=== PATIENT | male | born 1955 | race Caucasian/White ===

== ENCOUNTER 2022-09-28 09:55 | Outpatient (REF) | payer MEDICARE, MEDICAID, SELFPAY ==
--- NOTE | ~2022-09-28 | XR_ITS ---
EXAMINATION: X-RAY RIGHT KNEE X-RAY STANDING BOTH KNEES CLINICAL INFORMATION: Pain. COMPARISON: Standing view radiograph 05/13/2015. TECHNIQUE: 2 views of the right knee. 1 standing view of both knees. FINDINGS: Total left knee arthroplasty without evidence of fracture or malfunctioning in this limited single view. No acute fractures or subluxation of the right knee. Severe joint space narrowing and subcortical sclerosis of the medial compartment of the right knee, progressed since 2014. Increased chondrocalcinosis in the lateral compartment of the right knee. Trace amount of joint fluid in the right knee. Scattered vascular calcifications. XR/XR knee standing BI IMPRESSION: 1. No acute fractures or subluxation. 2. Severe degenerative osteoarthritis of the medial compartment of the right knee, progressed since 2014. 3. Increased chondrocalcinosis in the lateral compartment of the right knee compared to 2015.
--- NOTE | ~2022-09-28 | XR_ITS ---
EXAMINATION: X-RAY RIGHT KNEE X-RAY STANDING BOTH KNEES CLINICAL INFORMATION: Pain. COMPARISON: Standing view radiograph 05/13/2015. TECHNIQUE: 2 views of the right knee. 1 standing view of both knees. FINDINGS: Total left knee arthroplasty without evidence of fracture or malfunctioning in this limited single view. No acute fractures or subluxation of the right knee. Severe joint space narrowing and subcortical sclerosis of the medial compartment of the right knee, progressed since 2014. Increased chondrocalcinosis in the lateral compartment of the right knee. Trace amount of joint fluid in the right knee. Scattered vascular calcifications. XR/XR knee RT 2V IMPRESSION: 1. No acute fractures or subluxation. 2. Severe degenerative osteoarthritis of the medial compartment of the right knee, progressed since 2014. 3. Increased chondrocalcinosis in the lateral compartment of the right knee compared to 2015.
== END 2022-09-28 09:56 | disposition home or self-care (01) ==
LOC: HO.HOSX 09:55
PROVIDERS: Visit Provider Physician Assistant
DX: M17.11 Unilateral primary osteoarthritis, right knee (principal)
CPT/HCPCS: 73560; 73565; 99202

== ENCOUNTER → 2022-10-17 09:00 | Outpatient (BNVA) | payer MEDICARE, MEDICAID, SELFPAY | PROVIDERS: PCP Nurse Practitioner Primary Care; Visit Provider Orthopaedic Surgery | DX: M17.11 Unilateral primary osteoarthritis, right knee (principal); Z96.652 Presence of left artificial knee joint | CPT/HCPCS: 99212 ==

== ENCOUNTER → 2022-11-15 09:58 | Outpatient (BNVA) | payer MEDICARE, MEDICAID, SELFPAY | PROVIDERS: PCP Nurse Practitioner Primary Care; Visit Provider Orthopaedic Surgery ==

== ENCOUNTER → 2022-12-08 13:10 | Outpatient (BNVA) | payer MEDICARE, MEDICAID, SELFPAY | PROVIDERS: PCP Physician Assistant; Visit Provider Physician Assistant | DX: Z01.818 Encounter for other preprocedural examination (principal); M17.11 Unilateral primary osteoarthritis, right knee | CPT/HCPCS: 99212 ==

== ENCOUNTER 2022-12-13 07:30 | Day surgery (SDC) | payer MEDICARE, MEDICAID, SELFPAY ==
[2022-12-05 12:17] VITALS: BP 148/72; PULSE 65; RESP 20; O2SAT 97; BMI 33.7
--- NOTE | 2022-12-05 12:38 | P.CONAN_ITS ---
Documented by User: Claritza Garza NP 12/12/22 09:20 HPI - Anesthesia Eval Consult details Narrative: 67yo M for Right Knee Replacement Total PCP cleared Cardiology cleared (mild-mod aortic stenosis. Last ECHO 2020.) Low Mg at PCP. PO supplement. Repeat value pending. Case reviewed with Dr Ashby. ? GA vs Spinal PMFSH Active Problems Active Problems: All Active Problems (Updated 12/05/22 @ 12:33 by Catrachita Thompson RN) Osteoarthritis of right knee (Acute) History of left knee replacement (Acute) Past Medical History Medical History Anxiety Aortic stenosis Arthritis Asthma Depression Hepatitis C High blood pressure Neuropathy Substance abuse in remission Family History Family history of problems with anesthesia: No Surgical History Surgical History H/O colonoscopy History of total left knee replacement Hx of left inguinal hernia repair Hx of vein stripping History of Problems with Anesthesia: No Social History Social History Are you a primary health and social care teacher to a significant other at home: No Do you presently have visiting nurse or other home services: No Tobacco use type: Cigarette Cigarettes Per Day: 20 Years Smoked: 40 Smoked in Last 30 Days: Yes Patient Interested in Nicotine Replacement: Yes (is starting on nicotrol inhaler but patch is ok during stay) Use of substances other than those prescribed or required for medical reasons: Yes Substance Use Type Other:: former heroin use-clean since 2018, current daily marijuana Substance Use Frequency: Daily Have you been hit, kicked, punched, or otherwise hurt by someone within the past year? If so, by whom?: No Are you DNR?: No Advance Directives: No (no official HCP form-mother is primary contact) Advance Directives Information Provided: Yes (brochure given) Advance Directives on File: No Recently lost weight without trying: No Eating poorly because of decreased appetite: No Nutrition Risks: No Nutritional Risk Poor oral hygiene: No (upper full denture/no lower teeth, juan not wear lower denture) Current occupational status: retired Current occupation: rt hand Narrative Narrative: No recent illness No CP/SOB within limits of pain (minimal activity) Meds Allergies Allergy/AdvReac Type Severity Reaction Status Date / Time No Known Allergies Allergy Unverified 12/08/22 13:16 [No Known Allergies*] Home Medications Medication Instructions Recorded Confirmed Last Taken Type azelastine 137 mcg (0.1 %) nasal 2 spray intranasal BID PRN Allergy 09/28/22 12/08/22 Unknown History spray aerosol Symptoms clonidine HCl 0.1 mg tablet 0.1 mg PO BEDTIME 09/28/22 12/08/22 Unknown History folic acid 1 mg tablet 1 mg PO BEDTIME 09/28/22 12/08/22 Unknown History hydrochlorothiazide 25 mg tablet 25 mg PO DAILY PRN ankle edema 09/28/22 12/08/22 Unknown History ibuprofen 600 mg tablet 600 mg PO TID PRN Pain 09/28/22 12/08/22 Unknown History lisinopril 40 mg tablet 40 mg PO BEDTIME 09/28/22 12/08/22 Unknown History magnesium oxide 400 mg (241.3 mg 800 mg PO QPM 09/28/22 12/08/22 Unknown History magnesium) tablet nicotine 10 mg inhalation 1 inh inhalation Q2H 09/28/22 12/08/22 Unknown History cartridge (Nicotrol) albuterol sulfate 90 mcg/actuation 2 puff inhalation Q4H PRN 12/02/22 12/13/22 12/12/22 History aerosol inhaler Shortness Of Breath budesonide 90 mcg/actuation breath 2 inh inhalation BID 12/02/22 12/08/22 Unknown History activated powder inhaler (Pulmicort Flexhaler) cholecalciferol (vitamin D3) 25 25 mcg PO BEDTIME 12/02/22 12/05/22 Unknown History mcg (1,000 unit) capsule (Vitamin D3) Exam Exam Date and Time: December 05, 2022 1238 Height,Weight and Vital Signs: Height 5 ft 9 in Weight 103.873 kg Last Vital Signs Pulse 65 12/05/22 12:17 Resp 20 12/05/22 12:17 BP 148/72 H 12/05/22 12:17 Pulse Ox 97 12/05/22 12:17 O2 Del Method Room Air 12/05/22 12:17 Pertinent Lab Results Pertinent Lab Results: CBC and BMP 11/2022 from outside facility WNL Mg low @ 1.4, repeat pending Lab Results 12/05/22 12/05/22 12/05/22 Range/Units 12:40 13:18 13:24 Magnesium 1.4 L* (1.6-2.6) mg/dL Nasal Screen MRSA (PCR) NEGATIVE (Negative) Nasal S. aureus Screen NEGATIVE (Negative) Nasal MRSA/S.aureus Interp SEE NOTE Urine Opiates Screen (Not Detect) Urine Fentanyl Screen (Not Detect) Ur Barbiturates Screen (Not Detect) Ur Phencyclidine Scrn (Not Detect) Ur Amphetamines Screen (Not Detect) U Benzodiazepines Scrn (Not Detect) Urine Cocaine Screen (Not Detect) U Marijuana (THC) Screen (Not Detect) Blood Type O Positive Antibody Screen NEGATIVE 12/05/22 12/08/22 Range/Units 13:40 14:24 Magnesium 1.7 (1.6-2.6) mg/dL Nasal Screen MRSA (PCR) (Negative) Nasal S. aureus Screen (Negative) Nasal MRSA/S.aureus Interp Urine Opiates Screen Not Detected (Not Detect) Urine Fentanyl Screen Not Detected (Not Detect) Ur Barbiturates Screen Not Detected (Not Detect) Ur Phencyclidine Scrn Not Detected (Not Detect) Ur Amphetamines Screen Not Detected (Not Detect) U Benzodiazepines Scrn Not Detected (Not Detect) Urine Cocaine Screen Not Detected (Not Detect) U Marijuana (THC) Screen POSITIVE H (Not Detect) Blood Type Antibody Screen Narrative Narrative: EKG 11/2022 SR @ 60 1st deg AV block ECHO 2020 1. LV size is normal 2. Mild conc LVH 3. LV systolic function nml with EF 65-70% 4. Grade 1 DD with impaired relaxation. LA pressures nml 5. AV mildly calcified 6. Mild-mod (REYES = 1.3cm2) 7. Max velocity across AV 2.94 (increased from 2.49 in 2019) 8. Trace MR Airway TM Dist: >3cm Neck ROM: Full Denture: Upper and Lower Heart: RRR +M Lungs: CTAB Assessment and Plan Assessment Anesthesia Assessment: Anesthesia Plan Discussed, Smoking Cess. Discussed and PAT Visit Final Anesthetic Review Family History of Problems with Anesthesia: No History of Problems with Anesthesia: No Documented by User: Jessica Seth MD 12/13/22 12:00 [facility] Past Medical History Medical History Anxiety Aortic stenosis Arthritis Asthma Depression Hepatitis C High blood pressure Neuropathy Substance abuse in remission Surgical History Surgical History H/O colonoscopy History of total left knee replacement Hx of left inguinal hernia repair Hx of vein stripping Social History Social History Are you a primary health and social care teacher to a significant other at home: No Do you presently have visiting nurse or other home services: No Tobacco use type: Cigarette Cigarettes Per Day: 20 Years Smoked: 40 Smoked in Last 30 Days: Yes Patient Interested in Nicotine Replacement: Yes (is starting on nicotrol inhaler but patch is ok during stay) Use of substances other than those prescribed or required for medical reasons: Yes Substance Use Type Other:: former heroin use-clean since 2018, current daily marijuana Substance Use Frequency: Daily Have you been hit, kicked, punched, or otherwise hurt by someone within the past year? If so, by whom?: No Are you DNR?: No Advance Directives: No (no official HCP form-mother is primary contact) Advance Directives Information Provided: Yes (brochure given) Advance Directives on File: No Recently lost weight without trying: No Eating poorly because of decreased appetite: No Nutrition Risks: No Nutritional Risk Poor oral hygiene: No (upper full denture/no lower teeth, juan not wear lower denture) Current occupational status: retired Current occupation: rt hand Meds Allergies Allergy/AdvReac Type Severity Reaction Status Date / Time No Known Allergies Allergy Unverified 12/08/22 13:16 [No Known Allergies*] Home Medications Medication Instructions Recorded Confirmed Last Taken Type azelastine 137 mcg (0.1 %) nasal 2 spray intranasal BID PRN Allergy 09/28/22 12/08/22 Unknown History spray aerosol Symptoms clonidine HCl 0.1 mg tablet 0.1 mg PO BEDTIME 09/28/22 12/08/22 Unknown History folic acid 1 mg tablet 1 mg PO BEDTIME 09/28/22 12/08/22 Unknown History hydrochlorothiazide 25 mg tablet 25 mg PO DAILY PRN ankle edema 09/28/22 12/08/22 Unknown History ibuprofen 600 mg tablet 600 mg PO TID PRN Pain 09/28/22 12/08/22 Unknown History lisinopril 40 mg tablet 40 mg PO BEDTIME 09/28/22 12/08/22 Unknown History magnesium oxide 400 mg (241.3 mg 800 mg PO QPM 09/28/22 12/08/22 Unknown History magnesium) tablet nicotine 10 mg inhalation 1 inh inhalation Q2H 09/28/22 12/08/22 Unknown History cartridge (Nicotrol) albuterol sulfate 90 mcg/actuation 2 puff inhalation Q4H PRN 12/02/22 12/13/22 12/12/22 History aerosol inhaler Shortness Of Breath budesonide 90 mcg/actuation breath 2 inh inhalation BID 12/02/22 12/08/22 Unkno wn History activated powder inhaler (Pulmicort Flexhaler) cholecalciferol (vitamin D3) 25 25 mcg PO BEDTIME 12/02/22 12/05/22 Unknown History mcg (1,000 unit) capsule (Vitamin D3) Exam Airway Mallampati Class: II Assessment and Plan Assessment Anesthesia Assessment: Chart Reviewed Final Anesthetic Review NPO: Yes ASA Class: III Final Preanesthetic Review: No Changes in Pt Med Stat, Meds/Allgs Chart Reviewed, Consent Obtained/Reviewed and Anes Risks/Benef Reviewed Patient Risk: Intermediate Procedure Risk: Intermediate Anesthetic Plan Anesthetic Plan: Spinal and Regional Block Disposition: Standard PACU
[2022-12-05 14:16] LABS: MRSA Nasal PCR NEGATIVE (Negative); SA Nasal PCR NEGATIVE (Negative)
[2022-12-05 14:39] LABS: Amphetamine Screen Urine Not Detected (Not Detect); Barbiturates, Urine Not Detected (Not Detect); Benzodiazepines Screen Urine Not Detected (Not Detect); Cannabinoid Screen Urine POSITIVE (Not Detect); Cocaine Screen Urine Not Detected (Not Detect); Fentanyl, urine Not Detected (Not Detect); Opiate Screen Urine Not Detected (Not Detect); Phencyclidine Screen Urine Not Detected (Not Detect)
[2022-12-05 15:22] LABS: Magnesium 1.4 mg/dL (1.6-2.6)
[2022-12-08 15:39] LABS: Magnesium 1.7 mg/dL (1.6-2.6)
[2022-12-13] VITALS (12 sets, daily range): BP systolic 122–183; BP diastolic 56–88; PULSE 56–555; RESP 16–20; TEMP 36.3–36.4; O2SAT 92–98; BMI 33.4
--- NOTE | ~2022-12-13 | XR_ITS ---
EXAMINATION: XR KNEE, RIGHT CLINICAL INFORMATION: Right total knee arthroplasty. COMPARISON: Right knee radiographs dated 09/28/2022. TECHNIQUE: AP and lateral views of the right knee. FINDINGS: Prosthetic components of the right total knee arthroplasty are appropriately aligned. No periprosthetic fracture. Gas from recent surgery is present in the joint and surrounding soft tissues. A joint effusion is present. XR/XR knee RT 2V IMPRESSION: Appropriate alignment of the right total knee arthroplasty.
[2022-12-13 07:53] LABS: Hematocrit 42.6 % (42.0-52.0); Hemoglobin 14.4 g/dl (14.0-18.0)
[2022-12-13 08:17] LABS: COVID-19 Test Negative (Negative); IDNOW Serial# BCCEAD1C
[2022-12-13] MEDS: Lactated Ringers 1,000 ML 100 ML IVCONT ×2 (08:39→15:08)
--- NOTE | 2022-12-13 09:51 | MHC.SHP ---
Pre-Procedural Eval Section A Date of Service: 12/13/22 The patient is an INPATIENT: No Changes since office visit: No Cold of Flu in the past 2 weeks, No New Medical Problems, No Changes in Medication and No Patient answered all questions The History & Physical has been completed within 30 days and I have reviewed it.: Yes Section B Chief Complaint: rt tka Allergies: Allergies Allergy/AdvReac Type Severity Reaction Status Date / Time No Known Allergies Allergy Unverified 12/08/22 13:16 [No Known Allergies*] Plan I have reviewed the history and physical and performed a pertinent physical examination on my patient. No changes have occurred unless specified. Time Spent With Patient Time: Total time managing care of this patient today ____ minutes.
[2022-12-13] MEDS: Albuterol Sulfate (0.083%) 2.5 MG/3 ML VIAL.NEB INHALE (10:30)
[2022-12-13 11:26] LABS: Magnesium 1.4 mg/dL (1.6-2.6)
--- NOTE | 2022-12-13 11:38 | PC.NURSE ---
Chemistry called at 11:27 with critical magnesium level of 1.[address] Ashby updated at this time and going into OR to update staff. PHOTOGRAPHY COLORIST, Marilynn Olguin, updated as well to notify staff in room. Dr. Ashby stated to me that staff in OR are aware.
--- NOTE | 2022-12-13 12:55 | PM.OP ---
Brief Operative Note Date of Service: 12/13/22 Pre-op diagnosis: Right knee OA Post-op diagnosis: same Procedure: Right TKA Implants: [employer] 11/09/14cr/35a Surgeon: Joe Guerra MD Anesthesia: GETA and local Was an Warehouse Distribution Associate used for this Procedure?: No Warehouse Distribution Associate: Bibiana Mancini Estimated blood loss (mL): 200 IV fluids (mL): 1,000 Pathology: other Condition: stable Disposition: PACU
[2022-12-13] MEDS: 0.9 % Sodium Chloride Flush 3 ML SYRINGE IVFLUSH (15:08)
--- NOTE | 2022-12-13 15:09 | HO.PM.IMCN ---
History of Present Illness Data of Consult Service Date: 12/13/22 Requesting physician: Bibiana Mancini Primary Care Provider: YOLY Wooten HPI Reason for consult: medical management 67 year old male with history of htn, anxiety, hx hepatitis c, peripheral neuropathy, alcohol use disorder admitted to orthopedic surgery for management of right knee osteoarthritis s/p right TKA with consult placed to hospitalist service for medical management. The patient did have spinal anesthesia and is still reporting paresthesias to the feet bilaterally. He has no complaints at this time. The patient does endorse drinking 3 vodka drinks daily but does not measure his alcohol. He denies history of withdrawal or withdrawal siezure. Denies h/a, nausea, vomiting, anxiety, aggitation, hallucinations, sweats, tremor. Smokes about 1 ppd cigarettes. No drug use. Review of Systems Review of Systems: General: No fevers, malaise, unintentional weight loss HEENT: No blurred vision, diplopia. No sore throat, nasal congestion, rhinorrhea, sinus pain, ear pain Cardiovascular: No chest pain, palpitations, or leg edema Respiratory: No shortness of breath, wheezing, cough GI: No abdominal pain, nausea, vomiting, diarrhea, constipation, melena, hematochezia : No dysuria, hematuria, increased urinary frequency, decreased urinary output MSK: No myalgia, back pain Neuro: No headaches, weakness. + paresthesias Skin: No rashes or lesions [facility] Medical History (Updated 12/13/22 @ 15:23 by YOLY Loza) Alcohol use disorder Anxiety Aortic stenosis Arthritis Asthma Depression Hepatitis C High blood pressure Neuropathy Substance abuse in remission Surgical History H/O colonoscopy History of total left knee replacement Hx of left inguinal hernia repair Hx of vein stripping Social History Are you a primary medicare compliance auditor to a significant other at home: No Do you presently have visiting nurse or other home services: No Tobacco use type: Cigarette Cigarettes Per Day: 20 Years Smoked: 40 Smoked in Last 30 Days: Yes Patient Interested in Nicotine Replacement: Yes (is starting on nicotrol inhaler but patch is ok during stay) Use of substances other than those prescribed or required for medical reasons: Yes Substance Use Type Other:: former heroin use-clean since 2018, current daily marijuana Substance Use Frequency: Daily Have you been hit, kicked, punched, or otherwise hurt by someone within the past year? If so, by whom?: No Are you DNR?: No Advance Directives: No (no official HCP form-mother is primary contact) Advance Directives Information Provided: Yes (brochure given) Advance Directives on File: No Recently lost weight without trying: No Eating poorly because of decreased appetite: No Nutrition Risks: No Nutritional Risk Poor oral hygiene: No (upper full denture/no lower teeth, juan not wear lower denture) Current occupational status: retired Current occupation: rt hand Meds Allergies Allergy/AdvReac Type Severity Reaction Status Date / Time No Known Allergies Allergy Unverified 12/08/22 13:16 [No Known Allergies*] Active Medications: Current Medications Acetaminophen (Acetaminophen 325 Mg Tablet) 650 mg PO Q6H PRN PRN Reason: Pain, Mild (Pain Scale 1-3) Albuterol Sulfate (Albuterol Sulfate 90 Mcg 8 Gm Inhaler) 2 puff INHALE Q4H PRN PRN Reason: Shortness Of Breath Azelastine HCl (Azelastine Hcl Nasal 137 Mcg/[place]prise 30 Ml) 2 spray NOSTRIL-B BID PRN PRN Reason: Allergy Symptoms Budesonide (Budesonide 180 Mcg Aer.Pow.Ba) 1 puff INHALE RBID SELENA Celecoxib (Celecoxib 200 Mg Capsule) 200 mg PO BID SELENA Clonidine HCl (Clonidine Hcl 0.1 Mg Tablet) 0.1 mg PO BEDTIME SELENA; Protocol Docusate Sodium (Docusate Sodium 100 Mg Capsule) 100 mg PO DAILY PRN PRN Reason: Constipation Enoxaparin Sodium (Enoxaparin Sodium 40 Mg/0.4 Ml Syringe) 40 mg SUBCUT Q24H SELENA Folic Acid (Folic Acid 1 Mg Tablet) 1 mg PO BEDTIME SELENA Hydromorphone HCl (Hydromorphone Hcl 0.5 Mg/0.5 Ml Syringe) 0.25 mg IVPUSH Q4H PRN; Protocol PRN Reason: Pain, Severe (Pain Scale 7-10) Lactated Ringer's (Lr) 1,000 mls @ 100 mls/hr IVCONT .Q10H SELENA Stop: 12/14/22 13:02 Last Admin: 12/13/22 15:08 Dose: 100 mls/hr Cefazolin Sodium/Dextrose (Ancef) 2 gm in 50 mls @ 100 mls/hr IV POSTOP ONE Stop: 12/13/22 17:49 Magnesium Oxide (Magnesium Oxide 400 Mg Tablet) 800 mg PO BEDTIME SELENA Ondansetron HCl (Ondansetron Hcl 4 Mg/2 Ml Vial) 4 mg IVPUSH Q8H PRN PRN Reason: Nausea and Vomiting Oxycodone HCl (Oxycodone Hcl Immed Release 5 Mg Tablet) 10 mg PO Q4H PRN PRN Reason: Pain, Moderate(Pain Scale 4-6) Oxycodone HCl (Oxycodone Hcl Er 10 Mg Tab.Er.12h) 10 mg PO BID SELENA Sodium Chloride (0.9 % Sodium Chloride Flush 3 Ml Syringe) 3 ml IVFLUSH QSHIFT [facility] Last Admin: 12/13/22 15:08 Dose: 3 ml Home Medications Medication Instructions Recorded Confirmed Last Taken Type azelastine 137 mcg (0.1 %) nasal 2 spray intranasal BID PRN Allergy 09/28/22 12/08/22 Unknown History spray aerosol Symptoms clonidine HCl 0.1 mg tablet 0.1 mg PO BEDTIME 09/28/22 12/13/22 Unknown History folic acid 1 mg tablet 1 mg PO BEDTIME 09/28/22 12/13/22 Unknown History lisinopril 40 mg tablet 40 mg PO BEDTIME 09/28/22 12/13/22 Unknown History magnesium oxide 400 mg (241.3 mg 400 mg PO DAILY 09/28/22 12/13/22 Unknown History magnesium) tablet albuterol sulfate 90 mcg/actuation 2 puff inhalation Q4H PRN 12/02/22 12/13/22 12/12/22 History aerosol inhaler Shortness Of Breath budesonide 90 mcg/actuation breath 2 inh inhalation BID 12/02/22 12/13/22 Unknown History activated powder inhaler (Pulmicort Flexhaler) cholecalciferol (vitamin D3) 25 25 mcg PO BEDTIME 12/02/22 12/13/22 Unknown History mcg (1,000 unit) capsule (Vitamin D3) Physical Exam Vital Signs and Narrative: Vital Signs: Last Vital Signs Temp 97.5 F 05/09/23 13:05 Pulse 555 H 12/13/22 14:35 Resp 18 12/13/22 14:35 BP 136/64 12/13/22 14:35 Pulse Ox 97 12/13/22 14:35 O2 Del Method Nasal Cannula 12/13/22 14:35 O2 Flow Rate 2 12/13/22 14:35 BMI result Body Mass Index 33.4 Constitutional - Awake and Alert, No apparent distress Eyes - PERRLA, EOMI Cardiovascular - S1S2, RRR, No edema Respiratory - Normal lung expansion, Normal respiratory effort, No respiratory distress, CTA bilaterally Gastrointestinal - NT / ND; +BS; No rebound or guarding Extremities - no calf tenderness bilaterally, no swelling Skin - Warm/Dry Neurological - Alert & oriented x3, decreased sensation feet bilaterally Psychological - Appropriate affect Results Labs 12/13/22 07:42 Labs: Laboratory Results - last 24 hr 12/13/22 12/13/22 07:40 07:42 Magnesium 1.4 L* COVID-19 ([facility]RIS) Negative COVID-19 Clin Com See Note Imaging Radiologist's Impressions: Impressions Knee X-Ray 12/13/22 13:44 IMPRESSION: Appropriate alignment of the right total knee arthroplasty. Assessment and Plan (1) Osteoarthritis of right knee: Status: Acute (2) Alcohol use disorder: Status: Acute Plan 67 year old male with history of htn, anxiety, hx hepatitis c, peripheral neuropathy, alcohol use disorder admitted to orthopedic surgery for management of right knee osteoarthritis s/p right TKA with consult placed to hospitalist service for medical management. #Osteoarthritis right knee s/p TKA POD 0 -plan per orthopedic surgery #Alcohol use disorder- at risk for withdrawal -drinks 3 vodka etoh bevs daily. Does not measure -Monitor on CIWA -Hold on initiating phenobarb at this time given recent anesthesia -Add thiamine. Continue folic acid #HTN- reasonably controlled -resume lisinopril on d/c -Continue clonidine, monitor bps closely #Anxiety -continue clonidine #Hypomagnesemia- likey 2/2 etoh abuse -Mag 1.4. Given 1g IV mag -Continue PO mag #Mild persistent asthma -no acute exacerbation -continue home inhalers Thank you for this consult. Will continue to follow. Time Spent With Patient Time: Total time managing care of this patient today ____ minutes.
[2022-12-13] MEDS: Nicotine 21 MG PATCH.TD24 TRANSDERMA (15:31)
[2022-12-13] MEDS: Magnesium Sulfate/D5W 1 GM/100 ML PIGGYBACK IV (15:32)
[2022-12-13 15:45] LABS: Anion Gap 10 (12-20); Blood Urea Nitrogen 13 mg/dL (9-16); Calcium 9.5 mg/dL (8.4-10.2); Chloride 107 mmol/L (96-108); Creatinine Clr Calc Pharmacy 107.9; Estimated Glomerular Filt Rate > 60; Glucose Random 124 mg/dL (60-115); Potassium 4.8 mmol/L (3.3-5.1); Sodium 138 mmol/L (135-145)
[2022-12-13 15:49] LABS: Carbon Dioxide 26 mmol/L (22-29)
[2022-12-13] MEDS: ceFAZolin Sodium/Dextrose,Iso 2 GM/50 ML PIGGYBACK IV (17:05)
[2022-12-13] MEDS: HYDROmorphone HCl 0.5 MG/0.5 ML SYRINGE 0.25 MG IVPUSH ×2 (17:05→21:38)
[2022-12-13] MEDS: Magnesium Oxide 400 MG TABLET 800 MG PO (21:01)
[2022-12-13] MEDS: oxyCODONE HCl ER 10 MG TAB.ER.12H PO (21:01)
[2022-12-13] MEDS: Acetaminophen 325 MG TABLET 650 MG PO (21:02)
[2022-12-13] MEDS: Folic Acid 1 MG TABLET PO (21:02)
[2022-12-13] MEDS: Celecoxib 200 MG CAPSULE PO (21:02)
[2022-12-13] MEDS: cloNIDine HCL 0.1 MG TABLET PO (21:03)
[2022-12-14] VITALS (9 sets, daily range): BP systolic 122–172; BP diastolic 64–75; PULSE 58–64; RESP 16–20; TEMP 36.3–37; O2SAT 92–98
[2022-12-14] MEDS: oxyCODONE HCl Immed Release 5 MG TABLET 10 MG PO ×5 (00:08→21:04)
[2022-12-14] MEDS: Lactated Ringers 1,000 ML 100 ML IVCONT ×2 (01:29→10:21)
[2022-12-14] MEDS: HYDROmorphone HCl 0.5 MG/0.5 ML SYRINGE 0.25 MG IVPUSH ×3 (02:16→19:17)
[2022-12-14 05:40] LABS: Basophils Percent Auto 0.2 % (0-2); Hematocrit 36.8 % (42.0-52.0); Hemoglobin 12.5 g/dl (14.0-18.0); Imm Gran Abs Auto 0.09 X10*3/uL (0.00-0.03); Imm Gran Pct Auto 0.6 % (0.0-0.4); Lymphocytes Percent Auto 6.7 % (20-40); MANUAL DIFF FLAG SCAN; Mean Corpuscular Hemoglobin 32.5 pg (27.0-33.0); Mean Corpuscular Volume 95.6 fL (80.0-98.0); Mean Platelet Volume 9.7 fL (9.4-12.4); Monocytes Absolute Auto 1.6 X10*3/uL (0.1-1.2); Monocytes Percent Auto 10.2 % (2-11); Neutrophils Absolute Auto 12.7 x10*3/uL (2.0-8.3); Neutrophils Percent Auto 82.3 % (45-73); Platelet Count 203 X10*3/uL (160-400); Red Blood Count 3.85 X10*6/uL (4.60-5.80); Red Cell Distribution Width 13.9 % (11.0-16.0); SCAN SMEAR FLAG 1; White Blood Count 15.4 X10*3/uL (4.8-10.8)
[2022-12-14 06:17] LABS: SLIDE REVIEW VERIFIED
[2022-12-14 06:32] LABS: Anion Gap 10 (12-20); Blood Urea Nitrogen 18 mg/dL (9-16); Calcium 8.9 mg/dL (8.4-10.2); Carbon Dioxide 24 mmol/L (22-29); Chloride 105 mmol/L (96-108); Creatinine Clr Calc Pharmacy 103.7; Estimated Glomerular Filt Rate > 60; Glucose Fasting 142 mg/dL (60-99); Magnesium 1.4 mg/dL (1.6-2.6); Sodium 134 mmol/L (135-145)
--- NOTE | 2022-12-14 06:39 | PC.NURSE ---
RECEIVED TIGER TEXT FROM MYLES IN LAB, PATIENTS MAG LEVEL THIS AM 1.4. HOSPITALIST ON DUTY ALERTED AT 0638, AWAITING NEW ORDERS. NOTED MAG LEVEL 1.4 PREVIOUS DAY AND IV MEDICATION WAS GIVEN. PT WITH NO STATUS CHANGES. HOSPITALIST ACKNOWLEDGED INFORMATION.
--- NOTE | 2022-12-14 07:36 | PM.PNORT ---
Subjective Subjective Date of Service: 12/14/22 Interval history: POD1 s/p RTKA. Patient is resting in bed comfortably. No overnight events. Pain is managed. No additional complaints. Physical Exam Vital Signs: Vital Signs: Last Vital Signs Temp 97.9 F 12/14/22 07:22 Pulse 59 12/14/22 07:22 Resp 20 12/14/22 07:22 BP 137/66 12/14/22 07:22 Pulse Ox 92 12/14/22 07:22 O2 Del Method Room Air 12/14/22 07:22 O2 Flow Rate 2 12/13/22 14:35 BMI result Body Mass Index 33.4 Const: General: cooperative, healthy appearing and no acute distress Resp: Effort & Inspection: normal respiratory effort and able to speak in complete sentences Cardio: Rate: regular rate Peripheral pulses: Peripheral pulses 2+ throughout GI: Palpation (GI): Soft to palpation Skin: Lesions: no lesions Rashes: no rashes Extrem: Other: Right knee Aquacel is c/d/i. NVI. Procedures Date of Service Date of Service: 12/14/22 Progress Note: A&P Assessment and plan (1) Status post total knee replacement, right: Status: Acute Plan Continue pain mgmnt Begin Lovenox for dvt ppx Continue PT for RTKA - WBAT Dispo planning- PT, pain mgmnt Time Spent With Patient Time: Total time managing care of this patient today ____ minutes. Quality Stroke Does the patient have a stroke diagnosis?: No VTE Prior VTE?: No VTE Risk Level:: Medical - moderate - high VTE Device Contraindication: N/A - Device Ordered VTE Drug Contraindication: N/A - Med Ordered
[2022-12-14] MEDS: Thiamine HCL 100 MG TABLET PO (07:40)
[2022-12-14] MEDS: Celecoxib 200 MG CAPSULE PO ×2 (07:41→19:18)
[2022-12-14] MEDS: Nicotine 21 MG PATCH.TD24 TRANSDERMA (07:41)
[2022-12-14] MEDS: Budesonide 180 MCG AER.POW.BA 1 PUFF INHALE ×2 (07:51→20:01)
[2022-12-14] MEDS: oxyCODONE HCl ER 10 MG TAB.ER.12H PO ×2 (10:17→19:17)
[2022-12-14] MEDS: 0.9 % Sodium Chloride Flush 3 ML SYRINGE IVFLUSH ×2 (10:17→19:17)
--- NOTE | 2022-12-14 10:50 | HO.POSTANES ---
Post Anesthesia Evaluation Post Anesthesia Evaluation Vital Signs: Vital Signs Temp Pulse Resp BP Pulse Ox O2 Del Method 12/14/22 07:53 58 16 12/14/22 07:22 97.9 F 59 20 137/66 92 Room Air 12/14/22 04:00 97.9 F 64 16 122/64 96 Room Air 12/14/22 00:00 98.6 F 61 18 151/69 H 94 Room Air Anesthesia: Spinal and Nerve Block Mental Status: Awake Pain Control: Satisfactory Nausea/Vomiting: None Hydration: Adequate Anesthesia-Related Issues: No Anes. Related Issues
[2022-12-14] MEDS: Enoxaparin Sodium 40 MG/0.4 ML SYRINGE SUBCUT (11:42)
--- NOTE | 2022-12-14 12:34 | MHC.CM.PN ---
pt is covid vax x 2 has own ride home pt recommends home w/ servceis referral ns
--- NOTE | 2022-12-14 16:04 | HO.PM.IMPN ---
Subjective Subjective Date of Service: 12/14/22 Interval History: f/u htn, alcohol use desorder interval history: no withdrawal, having lots of pain in the right knee Physical Exam Vital Signs: Vital Signs: Last Vital Signs Temp 97.6 F 12/14/22 15:20 Pulse 58 12/14/22 15:20 Resp 18 12/14/22 15:20 BP 158/69 H 12/14/22 15:20 Pulse Ox 95 12/14/22 15:20 O2 Del Method Room Air 12/14/22 15:20 O2 Flow Rate 2 12/13/22 14:35 BMI result Body Mass Index 33.4 Const: Other: Constitutional - Awake and Alert, No apparent distress Eyes - PERRLA, EOMI Cardiovascular - S1S2, RRR, No edema Respiratory - Normal lung expansion, Normal respiratory effort, No respiratory distress, CTA bilaterally Gastrointestinal - NT / ND; +BS; No rebound or guarding Extremities - no calf tenderness bilaterally, no swelling Skin - Warm/Dry Neurological - Alert & oriented x3, decreased sensation feet bilaterally Psychological - Appropriate affect Objective Data Active Medications Acetaminophen (Acetaminophen 325 Mg Tablet) 650 mg PO Q6H PRN PRN Reason: Pain, Mild (Pain Scale 1-3) Last Admin: 12/13/22 21:02 Dose: 650 mg Documented By: SHIREEN Albuterol Sulfate (Albuterol Sulfate 90 Mcg 8 Gm Inhaler) 2 puff INHALE Q4H PRN PRN Reason: Shortness Of Breath Azelastine HCl (Azelastine Hcl Nasal 137 Mcg/[place] 30 Ml) 2 spray NOSTRIL-B BID PRN PRN Reason: Allergy Symptoms Budesonide (Budesonide 180 Mcg Aer.Pow.Ba) 1 puff INHALE RBID [facility] Last Admin: 12/14/22 07:51 Dose: 1 puff Documented By: KAYLEE Celecoxib (Celecoxib 200 Mg Capsule) 200 mg PO BID [facility] Last Admin: 12/14/22 07:41 Dose: 200 mg Documented By: VIBHA Clonidine HCl (Clonidine Hcl 0.1 Mg Tablet) 0.1 mg PO BEDTIME [facility]; Protocol Last Admin: 12/13/22 21:03 Dose: 0.1 mg Documented By: SHIREEN Docusate Sodium (Docusate Sodium 100 Mg Capsule) 100 mg PO DAILY PRN PRN Reason: Constipation Enoxaparin Sodium (Enoxaparin Sodium 40 Mg/0.4 Ml Syringe) 40 mg SUBCUT Q24H [facility] Last Admin: 12/14/22 11:42 Dose: 40 mg Documented By: VIBHA Folic Acid (Folic Acid 1 Mg Tablet) 1 mg PO BEDTIME [facility] Last Admin: 12/13/22 21:02 Dose: 1 mg Documented By: SHIREEN Hydromorphone HCl (Hydromorphone Hcl 0.5 Mg/0.5 Ml Syringe) 0.25 mg IVPUSH Q4H PRN; Protocol PRN Reason: Pain, Severe (Pain Scale 7-10) Last Admin: 12/14/22 07:41 Dose: 0.25 mg Documented By: VIBHA Magnesium Oxide (Magnesium Oxide 400 Mg Tablet) 800 mg PO BEDTIME [facility] Last Admin: 12/13/22 21:01 Dose: 800 mg Documented By: SHIREEN Nicotine (Nicotine 21 Mg Patch.Td24) 21 mg TRANSDERMA DAILY [facility] Last Admin: 12/14/22 07:41 Dose: 21 mg Documented By: VIBHA Ondansetron HCl (Ondansetron Hcl 4 Mg/2 Ml Vial) 4 mg IVPUSH Q8H PRN PRN Reason: Nausea and Vomiting Oxycodone HCl (Oxycodone Hcl Immed Release 5 Mg Tablet) 10 mg PO Q4H PRN PRN Reason: Pain, Moderate(Pain Scale 4-6) Last Admin: 12/14/22 11:41 Dose: 10 mg Documented By: VIBHA Oxycodone HCl (Oxycodone Hcl Er 10 Mg Tab.Er.12h) 10 mg PO BID [facility] Last Admin: 12/14/22 10:17 Dose: 10 mg Documented By: VIBHA Sodium Chloride (0.9 % Sodium Chloride Flush 3 Ml Syringe) 3 ml IVFLUSH QSHIFT [facility] Last Admin: 12/14/22 10:17 Dose: 3 ml Documented By: VIBHA Thiamine HCl (Thiamine Hcl 100 Mg Tablet) 100 mg PO DAILY [facility] Last Admin: 12/14/22 07:40 Dose: 100 mg Documented By: VIBHA Labs 12/14/22 05:10 12/14/22 05:10 Labs: Laboratory Results - last 24 hr 12/14/22 12/14/22 05:10 05:10 MCV 95.6 MCH 32.5 MCHC 34.0 RDW 13.9 Plt Count 203 MPV 9.7 Immature Gran % (Auto) 0.6 H Neut % (Auto) 82.3 H Lymph % (Auto) 6.7 L [place] % (Auto) 10.2 Eos % (Auto) 0.0 Baso % (Auto) 0.2 Lymph # (Auto) 1.0 L [place] # (Auto) 1.6 H Eos # (Auto) 0.0 Baso # (Auto) 0.0 Abs Immat Gran (auto) 0.09 H Absolute Neuts (auto) 12.7 H Absolute Nucleated RBC 0.000 Nucleated RBC % (auto) 0.0 Smear Tech's Comments VERIFIED Anion Gap 10 L Estim Creat Clear Calc 103.7 Estimated GFR > 60 Fasting Glucose 142 H Calcium 8.9 D Magnesium 1.4 L* Assessment and Plan (1) Status post total knee replacement, right: Status: Acute (2) Alcohol use disorder: Status: Acute Plan 67 year old male with history of htn, anxiety, hx hepatitis c, peripheral neuropathy, alcohol use disorder admitted to orthopedic surgery for management of right knee osteoarthritis s/p right TKA with consult placed to hospitalist service for medical management. #Osteoarthritis right knee s/p TKA POD 0 -plan per orthopedic surgery #Alcohol use disorder- at risk for withdrawal -drinks 3 vodka etoh bevs daily. Does not measure -Monitor on CIWA -Hold on initiating phenobarb at this time given recent anesthesia -Add thiamine. Continue folic acid -Ativan PRN for withdrawal #HTN- reasonably controlled -resume lisinopril -Continue clonidine, monitor bps closely #Anxiety -continue clonidine #Hypomagnesemia- likey 2/2 etoh abuse -Mag 1.4. Given 1g IV mag -Continue PO mag #Mild persistent asthma -no acute exacerbation -continue home inhalers Time Spent With Patient Time: Total time managing care of this patient today ____ minutes. Quality Stroke Does the patient have a stroke diagnosis?: No VTE Prior VTE?: No VTE Risk Level:: Medical - moderate - high VTE Device Contraindication: N/A - Device Ordered VTE Drug Contraindication: N/A - Med Ordered
[2022-12-14] MEDS: lisinopriL 40 MG TABLET PO (19:17)
[2022-12-14] MEDS: Cholecalciferol (Vitamin D3) 25 MCG TABLET PO (19:17)
[2022-12-14] MEDS: Folic Acid 1 MG TABLET PO (19:18)
[2022-12-14] MEDS: cloNIDine HCL 0.1 MG TABLET PO (19:18)
[2022-12-14] MEDS: Magnesium Oxide 400 MG TABLET 800 MG PO (19:19)
[2022-12-14] MEDS: Acetaminophen 325 MG TABLET 650 MG PO (21:04)
[2022-12-15] MEDS: Acetaminophen 325 MG TABLET 650 MG PO ×2 (02:55→09:26)
[2022-12-15] MEDS: oxyCODONE HCl Immed Release 5 MG TABLET 10 MG PO ×2 (02:55→07:15)
[2022-12-15 04:00] VITALS: BP 136/71; PULSE 57; RESP 16; TEMP 36.9; O2SAT 97
[2022-12-15 04:11] VITALS: BP 121/54; PULSE 79; RESP 16; TEMP 36.7; O2SAT 94
[2022-12-15 06:36] LABS: Basophils Percent Auto 0.2 % (0-2); Eosinophils Percent Auto 0.2 % (0-4); Hemoglobin 10.8 g/dl (14.0-18.0); Imm Gran Abs Auto 0.11 X10*3/uL (0.00-0.03); Imm Gran Pct Auto 0.9 % (0.0-0.4); Lymphocytes Absolute Auto 1.5 X10*3/uL (1.2-4.9); Lymphocytes Percent Auto 12.5 % (20-40); MANUAL DIFF FLAG SCAN; Mean Corpuscular HGB Conc 32.7 g/dl (31.0-36.0); Mean Corpuscular Hemoglobin 31.9 pg (27.0-33.0); Mean Corpuscular Volume 97.3 fL (80.0-98.0); Mean Platelet Volume 10.2 fL (9.4-12.4); Monocytes Absolute Auto 1.6 X10*3/uL (0.1-1.2); Monocytes Percent Auto 13.1 % (2-11); Neutrophils Absolute Auto 8.8 x10*3/uL (2.0-8.3); Neutrophils Percent Auto 73.1 % (45-73); Platelet Count 173 X10*3/uL (160-400); Red Blood Count 3.39 X10*6/uL (4.60-5.80); Red Cell Distribution Width 13.9 % (11.0-16.0); SCAN SMEAR FLAG 1; White Blood Count 12.1 X10*3/uL (4.8-10.8)
[2022-12-15 06:53] LABS: Anion Gap 10 (12-20); Blood Urea Nitrogen 23 mg/dL (9-16); Calcium 8.5 mg/dL (8.4-10.2); Carbon Dioxide 25 mmol/L (22-29); Chloride 104 mmol/L (96-108); Creatinine Clr Calc Pharmacy 115.6; Estimated Glomerular Filt Rate > 60; Glucose Fasting 112 mg/dL (60-99); Potassium 4.7 mmol/L (3.3-5.1); Sodium 134 mmol/L (135-145)
[2022-12-15 07:12] LABS: SLIDE REVIEW VERIFIED
[2022-12-15] MEDS: Thiamine HCL 100 MG TABLET PO (07:15)
[2022-12-15] MEDS: Nicotine 21 MG PATCH.TD24 TRANSDERMA (07:15)
[2022-12-15] MEDS: Celecoxib 200 MG CAPSULE PO (07:15)
[2022-12-15] MEDS: 0.9 % Sodium Chloride Flush 3 ML SYRINGE IVFLUSH (07:16)
[2022-12-15 07:29] VITALS: BP 123/58; PULSE 60; RESP 16; TEMP 36.7; O2SAT 96
--- NOTE | 2022-12-15 08:15 | P.PNIM_ITS ---
Subjective Subjective Date of Service: 12/15/22 Interval History: f/u htn, alcohol use desorder interval history: no withdrawal, pain is controlled Physical Exam Vital Signs: Vital Signs: Last Vital Signs Temp 98.0 F 12/15/22 07:29 Pulse 60 12/15/22 07:29 Resp 16 12/15/22 07:29 BP 123/58 L 12/15/22 07:29 Pulse Ox 96 12/15/22 07:29 O2 Del Method Room Air 12/15/22 07:29 O2 Flow Rate 2 12/13/22 14:35 BMI result Body Mass Index 33.4 Const: Other: Constitutional - Awake and Alert, No apparent distress Eyes - PERRLA, EOMI Cardiovascular - S1S2, RRR, No edema Respiratory - Normal lung expansion, Normal respiratory effort, No respiratory distress, CTA bilaterally Gastrointestinal - NT / ND; +BS; No rebound or guarding Extremities - no calf tenderness bilaterally, no swelling Skin - Warm/Dry Neurological - Alert & oriented x3, decreased sensation feet bilaterally Psychological - Appropriate affect Objective Data Active Medications Acetaminophen (Acetaminophen 325 Mg Tablet) 650 mg PO Q6H PRN PRN Reason: Pain, Mild (Pain Scale 1-3) Last Admin: 12/15/22 02:55 Dose: 650 mg Documented By: JACK Albuterol Sulfate (Albuterol Sulfate 90 Mcg 8 Gm Inhaler) 2 puff INHALE Q4H PRN PRN Reason: Shortness Of Breath Azelastine HCl (Azelastine Hcl Nasal 137 Mcg/[place] 30 Ml) 2 spray NOSTRIL-B BID PRN PRN Reason: Allergy Symptoms Budesonide (Budesonide 180 Mcg Aer.Pow.Ba) 1 puff INHALE RBID [facility] Last Admin: 12/14/22 20:01 Dose: 1 puff Documented By: SIDDHARTHA Celecoxib (Celecoxib 200 Mg Capsule) 200 mg PO BID [facility] Last Admin: 12/15/22 07:15 Dose: 200 mg Documented By: VIBHA Clonidine HCl (Clonidine Hcl 0.1 Mg Tablet) 0.1 mg PO BEDTIME [facility]; Protocol Last Admin: 12/14/22 19:18 Dose: 0.1 mg Documented By: JACK Comments: BP 172/78 Docusate Sodium (Docusate Sodium 100 Mg Capsule) 100 mg PO DAILY PRN PRN Reason: Constipation Enoxaparin Sodium (Enoxaparin Sodium 40 Mg/0.4 Ml Syringe) 40 mg SUBCUT Q24H [facility] Last Admin: 12/14/22 11:42 Dose: 40 mg Documented By: VIBHA Folic Acid (Folic Acid 1 Mg Tablet) 1 mg PO BEDTIME [facility] Last Admin: 12/14/22 19:18 Dose: 1 mg Documented By: JACK Hydromorphone HCl (Hydromorphone Hcl 0.5 Mg/0.5 Ml Syringe) 0.25 mg IVPUSH Q4H PRN; Protocol PRN Reason: Pain, Severe (Pain Scale 7-10) Last Admin: 12/14/22 19:17 Dose: 0.25 mg Documented By: JACK Lisinopril (Lisinopril 40 Mg Tablet) 40 mg PO BEDTIME [facility]; Protocol Last Admin: 12/14/22 19:17 Dose: 40 mg Documented By: JACK Comments: QT=431/78 Magnesium Oxide (Magnesium Oxide 400 Mg Tablet) 800 mg PO BEDTIME [facility] Last Admin: 12/14/22 19:19 Dose: 800 mg Documented By: JACK Nicotine (Nicotine 21 Mg Patch.Td24) 21 mg TRANSDERMA DAILY [facility] Last Admin: 12/15/22 07:15 Dose: 21 mg Documented By: VIBHA Ondansetron HCl (Ondansetron Hcl 4 Mg/2 Ml Vial) 4 mg IVPUSH Q8H PRN PRN Reason: Nausea and Vomiting Oxycodone HCl (Oxycodone Hcl Immed Release 5 Mg Tablet) 10 mg PO Q4H PRN PRN Reason: Pain, Moderate(Pain Scale 4-6) Last Admin: 12/15/22 07:15 Dose: 10 mg Documented By: VIBHA Oxycodone HCl (Oxycodone Hcl Er 10 Mg Tab.Er.12h) 10 mg PO BID [facility] Last Admin: 12/14/22 19:17 Dose: 10 mg Documented By: JACK Sodium Chloride (0.9 % Sodium Chloride Flush 3 Ml Syringe) 3 ml IVFLUSH QSHIFT [facility] Last Admin: 12/15/22 07:16 Dose: 3 ml Documented By: VIBHA Thiamine HCl (Thiamine Hcl 100 Mg Tablet) 100 mg PO DAILY [facility] Last Admin: 12/15/22 07:15 Dose: 100 mg Documented By: VIBHA Vitamin D (Cholecalciferol (Vitamin D3) 25 Mcg Tablet) 25 mcg PO BEDTIME [facility] Last Admin: 12/14/22 19:17 Dose: 25 mcg Documented By: JACK Labs 12/15/22 05:13 12/15/22 05:13 Labs: Laboratory Results - last 24 hr 12/15/22 12/15/22 05:13 05:13 MCV 97.3 MCH 31.9 MCHC 32.7 RDW 13.9 Plt Count 173 MPV 10.2 Immature Gran % (Auto) 0.9 H Neut % (Auto) 73.1 H Lymph % (Auto) 12.5 L [place] % (Auto) 13.1 H Eos % (Auto) 0.2 Baso % (Auto) 0.2 Lymph # (Auto) 1.5 [place] # (Auto) 1.6 H Eos # (Auto) 0.0 Baso # (Auto) 0.0 Abs Immat Gran (auto) 0.11 H Absolute Neuts (auto) 8.8 H Absolute Nucleated RBC 0.000 Nucleated RBC % (auto) 0.0 Smear Tech's Comments VERIFIED Anion Gap 10 L Estim Creat Clear Calc 115.6 Estimated GFR > 60 Fasting Glucose 112 H Calcium 8.5 Assessment and Plan (1) Status post total knee replacement, right: Status: Acute (2) Alcohol use disorder: Status: Acute Plan 67 year old male with history of htn, anxiety, hx hepatitis c, peripheral neuropathy, alcohol use disorder admitted to orthopedic surgery for management of right knee osteoarthritis s/p right TKA with consult placed to hospitalist service for medical management. #Osteoarthritis right knee s/p TKA POD 2 -plan per orthopedic surgery #Alcohol use disorder- at risk for withdrawal -drinks 3 vodka etoh bevs daily. no active withdrawal -Monitor on CIWA -Hold on initiating phenobarb at this time given recent anesthesia -Add thiamine. Continue folic acid -Ativan PRN for withdrawal #HTN- reasonably controlled -resume lisinopril -Continue clonidine, monitor bps closely #Anxiety -continue clonidine #Hypomagnesemia- likey 2/2 etoh abuse -Mag 1.4. Given 1g IV mag -Continue PO mag #Mild persistent asthma -no acute exacerbation -continue home inhalers Time Spent With Patient Time: Total time managing care of this patient today ____ minutes. Quality Stroke Does the patient have a stroke diagnosis?: No VTE Prior VTE?: No VTE Risk Level:: Medical - moderate - high VTE Device Contraindication: N/A - Device Ordered VTE Drug Contraindication: N/A - Med Ordered
--- NOTE | 2022-12-15 08:55 | P.DS_ITS ---
DS: Providers Provider Date of Service: 12/15/22 Primary care physician: YOLY Wooten Consults: 12/13/22 14:40 Consult to Hospitalist Routine Comment: Consulting Provider: Hospitalist Reason For Exam: medical management, h/o ETOH use DS: Diagnosis Discharge Diagnosis (1) Status post total knee replacement, right: Status: Acute (2) Alcohol use disorder: Status: Acute DS: Summary Hospital Course Hospital Course: The patient underwent a successful right total knee arthroplasty, they were transferred to PACU and then to the floor to recover. During their stay, their vitals were stable, afebrile at 98.0. Labs were unremarkable, H/H 10.8/33.0. POD 1 they were started on Lovenox for DVT ppx, they also received Physical Therapy services twice a day. Prior to discharge, their dressing was changed, incision clean dry and intact, new Aquacel dressing applied and the plan was to be discharged home with VNA services. Time Spent with Patient Time attestation: Total time managing care of this patient today ____ minutes. Discharge coordination time: Less than 30 minutes Quality: Safe Use of Opioids Does Pt have an Active Cancer Diagnosis on the Problem List?: No Quality: Stroke Does the patient have a stroke diagnosis?: No Physical Exam Vital Signs: Vital Signs: Last Vital Signs Temp 98.0 F 12/15/22 07:29 Pulse 60 12/15/22 07:29 Resp 16 12/15/22 07:29 BP 123/58 L 12/15/22 07:29 Pulse Ox 96 12/15/22 07:29 O2 Del Method Room Air 12/15/22 07:29 O2 Flow Rate 2 12/13/22 14:35 BMI result Body Mass Index 33.4 Const: General: cooperative, healthy appearing and no acute distress Resp: Effort & Inspection: normal respiratory effort and able to speak in complete sentences Cardio: Rate: regular rate Peripheral pulses: Peripheral pulses 2+ throughout GI: Palpation (GI): Soft to palpation Skin: Lesions: no lesions Rashes: no rashes Extrem: Other: Right knee incision site is c/d/i. [place] intact. No drainage. Able to dorsi/plantar flex. New Aquacel dressing appplied. NVI. DS: Data Data Completed and Pending Pending studies at discharge: Pending at discharge 12/13/22 12:31 Surgical [PTH] Routine Labs on day of discharge: Laboratory Results - last 24 hr 12/15/22 12/15/22 05:13 05:13 WBC 12.1 H RBC 3.39 L Hgb 10.8 L Hct 33.0 L MCV 97.3 MCH 31.9 MCHC 32.7 RDW 13.9 Plt Count 173 MPV 10.2 Immature Gran % (Auto) 0.9 H Neut % (Auto) 73.1 H Lymph % (Auto) 12.5 L [place] % (Auto) 13.1 H Eos % (Auto) 0.2 Baso % (Auto) 0.2 Lymph # (Auto) 1.5 [place] # (Auto) 1.6 H Eos # (Auto) 0.0 Baso # (Auto) 0.0 Abs Immat Gran (auto) 0.11 H Absolute Neuts (auto) 8.8 H Absolute Nucleated RBC 0.000 Nucleated RBC % (auto) 0.0 Smear Tech's Comments VERIFIED Sodium 134 L Potassium 4.7 Chloride 104 Carbon Dioxide 25 Anion Gap 10 L BUN 23 H Creatinine 0.70 Estim Creat Clear Calc 115.6 Estimated GFR > 60 Fasting Glucose 112 H Calcium 8.5 Discharge Plan Discharge Referrals: Bibiana Mancini PA-C [Physician Delinquency Counselor] - 12/29/22 12:30 pm Discharge Medications: New enoxaparin 40 mg/0.4 mL Syringe 40 mg subcut Q24H 42 Days Qty: 16.8 0RF acetaminophen 325 mg Tablet 650 mg PO Q6H PRN (Reason: Pain, Mild (Pain Scale 1-3)) 30 Days Qty: 240 0RF celecoxib 200 mg Capsule 200 mg PO BID 30 Days Qty: 60 0RF docusate sodium 100 mg Capsule 100 mg PO DAILY PRN (Reason: Constipation) 30 Days Qty: 60 0RF oxycodone 5 mg Tablet 10 mg PO Q4H PRN (Reason: Pain, Moderate(Pain Scale 4-6)) 7 Days Qty: 42 0RF Rx Instructions: Partial Fill upon patient request. Continued albuterol sulfate 90 mcg/actuation HFA aerosol inhaler 2 puff INHALATION Q4H PRN (Reason: Shortness Of Breath) cholecalciferol (vitamin D3) [Vitamin D3] 25 mcg (1,000 unit) Capsule 25 mcg PO BEDTIME Pulmicort Flexhaler 90 mcg/actuation aerosol powdr breath activated 2 inh INHALATION BID lisinopril 40 mg tablet 40 mg PO BEDTIME folic acid 1 mg tablet 1 mg PO BEDTIME clonidine HCl 0.1 mg tablet 0.1 mg PO BEDTIME azelastine 137 mcg (0.1 %) aerosol,spray 2 spray intranasal BID PRN (Reason: Allergy Symptoms) No Action magnesium oxide 400 mg (241.3 mg magnesium) tablet 400 mg PO DAILY Discharge Orders: Discharge Order (Routine); Ordered 12/15/22 Ordered By: Carmella Hendrickson Diet: Advance to usual diet Activity on Discharge: Use cane or walker Activity Restrictions/Additional Instructions: Physical Therapy for ROM 0-120, quad strength, gait training. Use walker for ambulation Limit stair climbing, No shower, No tub bath, No driving Continue anticoagulant Keep Aquacel dressing clean, dry and intact. Follow up with orthopedics in 2 weeks
--- NOTE | 2022-12-15 09:21 | MHC.CM.PN ---
PT WILL DC HOME TODAY WITH [facility] TO TRANSPORT
[2022-12-15] MEDS: oxyCODONE HCl ER 10 MG TAB.ER.12H PO (09:23)
[2022-12-15] MEDS: Enoxaparin Sodium 40 MG/0.4 ML SYRINGE SUBCUT (10:49)
--- NOTE | 2022-12-15 16:27 | PM.EVENT ---
Event Note Date of Service: 12/15/22 Event Note: Pt seen and examined, labs, med vital reviewed. BP is high and started on norvasc. A/P per H and P from this morning Time Spent With Patient Time: Total time managing care of this patient today ____ minutes.
--- NOTE | 2022-12-17 10:05 | P.OP_ITS ---
Operative Note Operative Note Date of Service: 12/13/22 Narrative: Date of Service: 12/13/22 Pre-op diagnosis: Right knee OA Post-op diagnosis: same Procedure: Right TKA Implants: [employer]lon 4/5/14cr/35a Surgeon: Joe Guerra MD Anesthesia: GETA and local Was an Traveling Sales Executive used for this Procedure?: No Traveling Sales Executive: Bibiana Mancini Estimated blood loss (mL): 200 IV fluids (mL): 1,000 Pathology: other Condition: stable Disposition: PACU Procedure in detail: The patient was brought to the operating room and prepped and draped in standard sterile fashion. A time-out was called to identify proper site proper procedure proper surgeon and IV antibiotics were administered. 1 g of IV tranexamic acid was administered. I began by making a midline incision to the retinaculum and performed a medial parapatellar arthrotomy. The patella was translated laterally and the knee was flexed up. There was severe varus pattern eburnation. I performed a small medial peel and resected the infrapatellar fat pad. Putnam's line was then used to drill my intramedullary femoral guide and my distal femur cut of 10 mm was made in 5 degrees of valgus while protecting the soft tissues. I then measured a #4 femur and placed my cutting guide in 3 deg or ER and made my anterior posterior and chamfer cuts protecting the soft tissues at all times. Once I was satisfied with my cuts I turned my attention to the tibia. I removed the meniscus medially and laterally and , using an external cutting guide, in line with the tibial crest and the third ray, I made my distal tibial cut in 3 deg slope of while protecting the PCL the posterior soft tissues at all times. An extension block was used to confirm appropriate amount of bony resection. I then sized a #5 tibia and once I was satisfied that there was complete tibial coverage I placed my trial and with the trial femur in place took the knee through range of motion. I was satisfied with the extension and flexion as well as the stability and balance at 0, 30 and 90 degrees. I then turned my attention to the patella where I removed 1 cm from the undersurface of the patella and then trialed a 35a patellar button. Again the knee was taken through range of motion I was satisfied with the tracking. I then returned to the femur and drilled my femoral lug holes and prepared the tibia. A femoral bone plug was placed and the knee was irrigated copiously. I then press fit the patella, tibia and femur in standard fashion. I trialed different inserts until I selected a #14mm CR insert. The final insert was placed and a 3 minutes iodine soak with local TXA was performed. A Werewolf cautery wand was used to maintain hemostasis over the capsule and meniscal beds, the gutters and peripatellar soft tissues. The knee was then closed with a running Quill suture, a 3 0 Vicryl and angelika on the skin. Patient was then placed in sterile dressing and brought to recovery room in stable condition there were no known complications.
== END 2022-12-15 11:28 ==
LOC: HO.SSS 07:42 → HO.S3 14:53
PROVIDERS: Nurse Practitioner; Physician Assistant; PCP Physician Assistant; Visit Provider Orthopaedic Surgery
PROC: (CPT 27447; principal; 2022-12-13 09:40)
DX: M17.11 Unilateral primary osteoarthritis, right knee (principal); I10 Essential (primary) hypertension; E78.49 Other hyperlipidemia; J45.909 Unspecified asthma, uncomplicated; I35.2 Nonrheumatic aortic (valve) stenosis with insufficiency; I35.0 Nonrheumatic aortic (valve) stenosis; B19.20 Unspecified viral hepatitis C without hepatic coma; G62.9 Polyneuropathy, unspecified; F19.11 Other psychoactive substance abuse, in remission; F10.90 Alcohol use, unspecified, uncomplicated; F32.A Depression, unspecified; Z79.1 Long term (current) use of non-steroidal anti-inflammatories (NSAID); Z79.899 Other long term (current) drug therapy; Z79.51 Long term (current) use of inhaled steroids; F17.210 Nicotine dependence, cigarettes, uncomplicated; Z20.822 Contact with and (suspected) exposure to COVID-19
CPT/HCPCS: 27447; 36415; 73560; 80048; 80307; 83735; 85014; 85018; 85025; 86850; 86900; 86901; 87635; 87640; 87641; 88305; 88311; 94640; 97110; 97116; 97162; C1776; J0690; J1100; J1170; J1650; J2250; J2370; J2405; J3475

== ENCOUNTER → 2022-12-29 12:23 | Outpatient (BNVA) | payer MEDICARE, MEDICAID, SELFPAY | PROVIDERS: PCP Physician Assistant; Visit Provider Physician Assistant | DX: Z47.1 Aftercare following joint replacement surgery (principal); Z96.651 Presence of right artificial knee joint | CPT/HCPCS: 99212 ==

== ENCOUNTER → 2023-02-03 11:30 | Outpatient (BNVA) | payer MEDICARE, MEDICAID, SELFPAY | PROVIDERS: PCP Physician Assistant; Visit Provider Orthopaedic Surgery ==

== ENCOUNTER 2023-03-02 10:28 | Outpatient (AMB) | payer MEDICARE, MEDICAID, SELFPAY ==
--- NOTE | 2023-03-02 10:42 | A.OFFVIS_ITS ---
Intake Intake Visit Reasons: Postop-RT TKA 12/13/22 NE Intake Note: Akira is a 67 year old male who presents today for a post operative follow up of his right knee, s/p Right TKA 12/13/22. Patient reports that he is doing well, he has no concerns. He is still working with physical therapy which is going well. Patient has not gotten celebrex , but is unsure why he was unable to get from the pharmacy Allergies No Known Allergies [No Known Allergies*] Allergy (Unverified 02/03/23 11:51) HPI Postop-RT TKA 12/13/22 NE HPI Details Akira is a 67 year old man ~3 months S/P right TKA, with increased pain after a fall. He says he is doing well and has been working with PT. He says his pain has improved and he has no complaints today. He says he can ascend stairs without issue, but still has some difficulty descending stairs. PFSH Medical History Alcohol use disorder Anxiety Aortic stenosis Arthritis Asthma Depression Hepatitis C High blood pressure Neuropathy Osteoarthritis of right knee Substance abuse in remission Surgical History H/O colonoscopy History of total left knee replacement Hx of left inguinal hernia repair Hx of vein stripping Social History Household Members: Family Housing: House Are you a primary healthcare administration intern to a significant other at home: No Do you presently have visiting nurse or other home services: Yes Patient Tobacco Use Status: Current everyday Tobacco user Tobacco use type: Cigarette Cigarette Packs Per Day: 1 Cigarettes Per Day: 20 Years Smoked: 40 service: No Current occupational status: retired Current occupation: rt hand Review of Systems Const All systems reviewed & are unremarkable except as noted in HPI and below Physical Exam Const General: no acute distress and alert Orientation/consciousness: patient oriented x3 Neuro General: patient oriented x3 Extrem Other: Right Knee: Well-healed incision 0-125 degrees ROM walking comfortably Psych Appearance: grossly normal Affect: normal affect Attitude: cooperative Results Reviewed Results Reviewed: I personally reviewed relevant radiographs. Right total knee arthroplasty in expected post operative position with no hardware complications or evidence of loosening Assessment & Plan Assessment & Plan (1) Status post total knee replacement, right: Code(s): Z96.651 - Presence of right artificial knee joint Plan: This is a 67 year old man S/P right TKA, DOS: 12/13/22. He has good ROM and his pain has improved. I recommend he continue with PT for ROM and at-home strengthening exercises. He will follow up in 2 months Plan Scribed for Joe Guerra MD by Clinton Sarabia, medical laboratory assistant, on 03/02/23 at 10:55 AM, EST. Coding Level of Care Code Global (86145) Diagnoses Status post total knee replacement, right Z96.651
== END 2023-03-02 11:56 | disposition home or self-care (01) ==
PROVIDERS: PCP Physician Assistant; Visit Provider Orthopaedic Surgery
DX: Z96.651 Presence of right artificial knee joint (principal)
CPT/HCPCS: 99024

== ENCOUNTER → 2023-03-02 10:28 | Outpatient (BNVA) | payer MEDICARE, MEDICAID, SELFPAY | PROVIDERS: PCP Physician Assistant; Visit Provider Orthopaedic Surgery ==

== ENCOUNTER 2023-03-23 08:42 | Outpatient (AMB) | payer MEDICARE, MEDICAID, SELFPAY ==
--- NOTE | 2023-03-23 08:44 | A.OFFVIS_ITS ---
Intake Intake Visit Reasons: OV-Recent fall s/p Rt TKA, DOS 12/13/22 Intake Note: Akira is a 67 year old male who presents today for a follow up of his right knee, he is s/p Right TKA 12/13/22. Patient reports recent fall. Allergies No Known Allergies [No Known Allergies*] Allergy (Unverified 03/23/23 08:53) HPI OV-Recent fall s/p Rt TKA, DOS 12/13/22 HPI Details Akira Farrell is a 67-year-old male who presents today to the clinic for a follow-up of recent fall and status post right TKA on 12/13/22. He states that he is doing well, however; he is anxious. The patient had a fall about a week ago. 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 He states that his left leg is stable this morning but his right leg is worse. He completed his physical therapy. The patient has prescription for ibuprofen and Tylenol. He reports sharp pain with twisting. He is going to start with gym in near future. [facility] Medical History Alcohol use disorder Anxiety Aortic stenosis Arthritis Asthma Depression Hepatitis C High blood pressure Neuropathy Osteoarthritis of right knee Substance abuse in remission Surgical History H/O colonoscopy History of total left knee replacement Hx of left inguinal hernia repair Hx of vein stripping Social History Household Members: Family Housing: House Are you a primary home care scheduler to a significant other at home: No Do you presently have visiting nurse or other home services: Yes Patient Tobacco Use Status: Current everyday Tobacco user Tobacco use type: Cigarette Cigarette Packs Per Day: 1 Cigarettes Per Day: 20 Years Smoked: 40 service: No Current occupational status: retired Current occupation: rt hand Physical Exam Const General: no acute distress, alert and awake Orientation/consciousness: patient oriented x3 HEENT Head: Yes normocephalic and Yes atraumatic Eyes EOM: EOMs intact bilaterally Resp Effort & Inspection: normal respiratory effort and able to speak in complete sentences Cardio Jugular venous distension: no JVD Skin General skin exam: turgor normal Rashes: no rashes Neuro General: patient oriented x3 Psych Appearance: grossly normal Affect: normal affect Attitude: cooperative Results Reviewed Results Reviewed: I personally reviewed relevant radiographs. right total knee arthroplasty in expected post operative position with no hardware complications or evidence of loosening Assessment & Plan Assessment & Plan (1) Status post total knee replacement, right: Code(s): Z96.651 - Presence of right artificial knee joint Plan: Stable right knee with intact extensor mechanism and + effusion one week after a fell. No acute intervention warranted. May resume PT and ice. f/u 2-3 months. Plan Scribed for Dr. Joe Guerra by Esteban Mckenna, medical records auditor, on 03/23/2023. I, Dr. Joe Guerra, have personally reviewed and agree with the information entered by the scribe. Orders: Orders XR knee RT 2V Today M25.569 - Pain in unspecified knee XR knee standing BI Today M25.569 - Pain in unspecified knee Coding Level of Care Code Global (27191) Diagnoses Status post total knee replacement, right Z96.651
== END 2023-03-23 09:01 | disposition home or self-care (01) ==
PROVIDERS: PCP Physician Assistant; Visit Provider Orthopaedic Surgery
DX: Z47.1 Aftercare following joint replacement surgery (principal); Z96.651 Presence of right artificial knee joint
CPT/HCPCS: 99024

== ENCOUNTER 2023-03-23 10:21 | Outpatient (REF) | payer MEDICARE, MEDICAID, SELFPAY ==
--- NOTE | ~2023-03-23 | XR_ITS ---
EXAMINATION: XR knee RT 2V, XR knee standing BI CLINICAL INFORMATION: Reason for Exam M25.569 - Pain in unspecified knee COMPARISON: Knee radiographs 12/13/2022 and 09/28/2022 TECHNIQUE: One view of the bilateral knees and 2 views of the right knee FINDINGS: RIGHT KNEE: No acute fracture or dislocation. Status post total knee arthroplasty in anatomic alignment. No evidence of hardware fracture or complication. Possible small suprapatellar joint effusion. Atherosclerotic vascular calcification. LEFT KNEE: No acute fracture or dislocation. Status post total knee arthroplasty in anatomic alignment. No evidence of hardware fracture or complication. Atherosclerotic vascular calcification. XR/XR knee standing BI IMPRESSION: 1. Status post bilateral total knee arthroplasties in anatomic alignment. No evidence of hardware fracture or complication. 2. Possible small right suprapatellar joint effusion.
--- NOTE | ~2023-03-23 | XR_ITS ---
EXAMINATION: XR knee RT 2V, XR knee standing BI CLINICAL INFORMATION: Reason for Exam M25.569 - Pain in unspecified knee COMPARISON: Knee radiographs 12/13/2022 and 09/28/2022 TECHNIQUE: One view of the bilateral knees and 2 views of the right knee FINDINGS: RIGHT KNEE: No acute fracture or dislocation. Status post total knee arthroplasty in anatomic alignment. No evidence of hardware fracture or complication. Possible small suprapatellar joint effusion. Atherosclerotic vascular calcification. LEFT KNEE: No acute fracture or dislocation. Status post total knee arthroplasty in anatomic alignment. No evidence of hardware fracture or complication. Atherosclerotic vascular calcification. XR/XR knee RT 2V IMPRESSION: 1. Status post bilateral total knee arthroplasties in anatomic alignment. No evidence of hardware fracture or complication. 2. Possible small right suprapatellar joint effusion.
== END 2023-03-23 10:22 | disposition home or self-care (01) ==
LOC: HO.HOSX 10:21
PROVIDERS: Visit Provider Orthopaedic Surgery
DX: Z47.1 Aftercare following joint replacement surgery (principal); Z96.651 Presence of right artificial knee joint
CPT/HCPCS: 73560; 73565

== ENCOUNTER 2023-04-04 11:00 | Outpatient (RCR) | payer MEDICARE, MEDICAID, SELFPAY ==
--- NOTE | 2023-01-11 12:41 | MHC.PT.EP ---
[facility] [place] Office [place] Office [place] [facility] [address] Lázaro Payton [address] [phone] F: [phone] F: [phone] F: [phone] F: [phone] Physical Therapy Plan of Care Date of Evaluation: Date of Surgery: 12/13/22 Diagnosis: R TKA Assessment: Pt IS 67 YO M REFERRED TO PT FROM ORTHO (DR ARAMBULA) S/P R TKA DONE ON 12/13/22 STAYED IN HOSPITAL FOR 2 DAYS THEN WENT HOME, HAD HOME PT. WENT PRETTY WELL. NOW I'M DOING MUCH BETTER . USED WW, THEN WALKING WITHOUT AD (HAS A CANE HANGING AROUND BUT FEELS LIKE IT GETS IN WAY SOMETIMES). PER LAST ORTHO VISIT ([facility]) ON December Dr Arambula was available to see Mr albrecht in the office with me today. We discussed the importance of elevating and working with PT. He will d/c the use of the lovenox as this may be causing the residual swelling and begin ASA 325mg tabs bid. Tomas removed, steri strips applied. He will begin to transition to Outpatient PT to continue working on Gait training, ROM and quad strength. No driving for another 4 weeks. He will require ppx abx for dental procedures. He will f/u in 4 weeks, sooner if needed. REPORTS HAD L KNEE REPLACED 8 YRS AGO HAD LAST HOME PT ABOUT 2 WKS AGO (REPORTS WAS ILL SO HAD TO CX INITIAL PT APPT) PRESENTS TO PT WITH R KNEE SWELLING, ANTALGIC GT PATTERN (NO AD), DECREASED R KNEE ROM AND DECREASED R LE STRENGTH. Pt WITH PAIN. ALL THESE FACTORS AFFECTING ADLS. GOOD PT CANDIDATE TO ADDRESS THESE ISSUES Frequency and Duration: The patient will be seen 2X/WK X 4 WKS Short Term Goals: 1. INCREASED AWARENESS KNEE CARE 2. IMPROVED GT PATTERN (LESS LIMP, DECREASED JAMIE) 3. Pt ABLE TO NEGOTIATE STAIRS STEP OVER STEP (CURRENTLY 1 STEP AT A TIME) Prison Goals: 1. DECREASED R KNEE PAIN AT LEAST 50% WITH ADLS 2. INCREASED R KNEE ROM 0-130 3. I HEP WITH DC EX PLAN Treatment Plan: Modalities to reduce pain, spasms and effusion. Manual therapy to restore motion and function. Therapeutic exercise to improve strength and flexibility. Neuromuscular re-education for posture and balance. Therapeutic activities to return to functional activities of daily living. Electronically signed by: DARRELL HERNANDEZ PT Please sign and return to therapist. Thank you for your referral.
--- NOTE | 2023-03-21 09:24 | MHC.PT.OD ---
[facility] [place] [facility] [place] [facility] [place] Office [address] Lázaro Payton [address] [phone] F: [phone] F: [phone] F: [phone] F: [phone] Physical Therapy Daily Note Diagnosis: R TKA Date of Surgery: 12/13/22 Date of Evaluation: 01/11/23 Date of Treatment: 03/20/23 Treatments to Date: 3 Cancellations to Date: No Shows to Date: Authorized Visits: Insurance End Date: Precautions/ Contraindications:R TKR LE NEUROPATHY HTN Subjective: Im back to where I was before the surgery. I cant do stairs like I could before. The pain seems to have increased the past few days. Pt reports he went to the dump over the weekend, but has poor tolerance for stair climbing like before Pain Score and Location: 4 R KNEE Objective Flowsheet: Tests & Measures 03/20/23AROM 0- 118 degrees, no palpable defect to quadiceps noted, able to perform SLR. Pain with attempt of step-up and step-down. Pt states, Im struggled to stand up on it this morning. 03/13/23Tiger text picture sent to Fang Grossman RN for information re: skin incision and new scabbed opening following fall. PER ORTHO NOTE FROM 02/03/23: ' Results Reviewed Results Reviewed: I personally reviewed relevant radiographs. Right total knee arthroplasty in expected post operative position with no hardware complications or evidence of loosening Assessment & Plan Assessment & Plan (1) Status post total knee replacement, right: Code(s): Z96.651 - Presence of right artificial knee joint Plan: This is a 67 year old man S/P right TKA, DOS: 12/13/22, with increased pain after a recent fall. He has good ROM but some mild effusion and pain with activity. I recommend RICE, NSAIDs, and he continue with PT and strengthening exercises. He will follow up in 1 month. I refilled his Oxycodone, 5mg q.d for 2 weeks. Plan Scribed for Joe Guerra MD by Clinton Sarabia, medical billing specialist, on 02/03/23 at 11:55 AM, EST. Coding Diagnoses Status post total knee replacement, right Z96.651 Documented By:Joe Guerra MD02/03/23 1147' Exercises SEATED BIKE LEVEL 4 gentle warmup X 15 MIN FOR WARM UP Call placed to [facility] orth[facility], spoke with Airam Mancini PA-C regarding sx and therapist concern for weight-bearing/stairs. Pt agreeable to being seen after therapist discussed progress. Held CKC task. Pt encouraged to continue ROM, ice and refrain fom CKC/stairs until he can be assessed. Pt to see Dr. Guerra on 03/23/23 at 8:45 am. Knee extension for ice anterior/posterior knee post attempt of 6 inch step-up due to flare of sx. Ice to R knees x 10 minutes post session, encouragement to be seen by ortho due to degree of new discomfort with step downs. Combo with STM AAROM flexion (pt pulling strap) for STM to posterior knee complex in effort to improve tissue extensibility/reduce sx. Cues to decrease hip ER on the right with ambulation. Education to consider use of std cane for ambulation to reduce gait deviations. ED RE CONTINUED PAIN AND WEAKNESS AT THIS POINT IN REHAB PROCESS. Pt REPORTS HE STILL HAS A FEW COCKTAILS EA DAY. ASKED IF HE IS INTERESTED IN INFO RE PROGRAM TO ASSIST IN STOPPING DRINKING..OFFERED CM SERVICES FROM HERE THROUGH COORDINATOR SHE, BUT Pt SAYS HE CAN SPEAK WITH PCP Modalities ICE PACK ANT/POST R KNEE X 8 MIN END OF SESSION Assessment: 03/20/23: Akira presents to office today, reports increased pain over the weekend with weight-bearing tasks, poor tolerance for attempt of ascending/descending stairs (sx rated 9/10 with attempt asending step with R LE. Compared to 03/13/23 visit pt exhibits poor tolerance for CKC, expressing worsening pain in R knee with weight-bearing. With education and encouragement pt was agreeable to being seen in orthopedics. Call was placed and therapist spoke to LORENA Mancini regarding status. Pt was given a follow up with Dr. Guerra on 03/23/23 at 8:45am. Pt to be placed on hold from PT until that time. Pt poor insight to personal safety and did report fall (see 03/13/23 asssessment). Today he is able to perform SLR wit no palpable defect in quadriceps. Pt expressing deep R knee pain with weight-bearing. AROM 0- 118 degrees supine. 03/13/23 Pt expressing he had a sustained a fall getting off of his mower two days ago, presents with history of knee incision split open (scab present, abrasions/scratches lateral anterior superior aspect of incision. Dark red scab present, dried near midline incision. (refer to [facility] text via SB, PT, DPT). Pt able to weight-bear at baseline with report of overall increased soreness/ slight edema noted R kne. AAROM near full extension to 116 supine. [place] text sent to Fang Grossman to determine if they want to see Akira to undergo xray. Pt verbalizes he does not feel an xray is necessary. [facility] text was delivered but not read at end of session. Addendum: Fang Grossman messaged SB, PT, DPT via tiger text at 4:29pm stating that she was going to follow up with Akira. Akira was offered an appt to be seen in the office and refused to be seen states Fang Grossman, RN at 4:33pm via tiger text. PT Plan: Assess tolerance for CKC following visit/fall history- if ongoingly painful encourage patient to be seen by ortho, end range flexion AAROM TKR PROTOCOL, ROM/STRENGTHENING, ST WORK, GT TRNG, MH/ICE Short Term Goals: 1. INCREASED AWARENESS KNEE CARE 2. IMPROVED GT PATTERN (LESS LIMP, DECREASED JAMIE) 3. Pt ABLE TO NEGOTIATE STAIRS STEP OVER STEP (CURRENTLY 1 STEP AT A TIME) Mcc Goals: 1. DECREASED R KNEE PAIN AT LEAST 50% WITH ADLS 2. INCREASED R KNEE ROM 0-130 3. I HEP WITH DC EX PLAN Electronically signed by: Katelyn Juarez, PT, DPT
--- NOTE | 2023-05-31 15:06 | MHC.PT.DC ---
[facility] [place] Office [place] Office [place] Office [address] Lázaro Payton [address] [phone] F: [phone] F: [phone] F: [phone] F: [phone] Physical Therapy Discharge Report Diagnosis: R TKA Date of Surgery: 12/13/22 Date of Evaluation: 01/11/23 Date of Discharge: 05/31/23 Treatments to Date: 3 Cancellations to Date: No Shows to Date: Discharge Status: Patient Elected to Stop Recommend MD Follow-up Discharge Summary: PER ASSESSMENT BY VERONICA DOAN PT,DPT AT LAST APPT ON 04/04/23: 'Pt presents to office exhibiting worsening B/L LE redness radiating from toe>mid-vora with L 4-5th toes and dorsum of foot reddened, swollen, and itchy. Pt expresses he had to switch to a different pair of shoes due to edema level. Therapist send tiger text with photo to Fang Grossman- Nurse Navigator [facility] ortho to inform her of status (she responded and stated she will be following up with him). I also called pt's PCP office Marisol Valenzuela PA-C of [facility] to express concern for edema/redness possible infection/cellulitis type appearance to [place] [facility]. Therapist spoke with Cinda at [facility] who stated Akira should expect a phone call back today from their office. Pt expresses he looked into gym membership but when he went to sign up there was no one available to take his application. We deferred further exercise activity so as not to exacerbate inflammation/redness/itch/infection of his B/L. Akira verbalized understanding post education and recommendation.' NO FURTHER APPTS ATTENDED OF NOTE, THIS PT CALLED OVER TO ORTHO OFFICE TO LEAVE MESSAGE FOR DR ARAMBULA TO LET HIM KNOW THAT Pt HAS NOT BEEN TO PT SINCE 04/04. PER LAST ORTHO NOTE, DR ARAMBULA WROTE THAT HE RECOMMENDED Pt CONTINUE WITH PT Electronically signed by: DARRELL HERNANDEZ PT Please sign and return to therapist. Thank you for your referral.
== END 2023-05-31 15:11 | disposition home or self-care (01) ==
LOC: HO.PTWFD 11:00
PROVIDERS: PCP Nurse Practitioner Primary Care; Visit Provider Physician Assistant
DX: Z96.651 Presence of right artificial knee joint (principal)
CPT/HCPCS: 97110; 97116; 97140; 97150; 97161; 97530; 97535

== ENCOUNTER → 2023-04-06 08:30 | Outpatient (BNV) | payer MEDICARE, MEDICAID, SELFPAY | PROVIDERS: PCP Physician Assistant; Visit Provider Internal Medicine Pulmonary Disease | DX: J44.9 Chronic obstructive pulmonary disease, unspecified (principal) | CPT/HCPCS: 94060; 94727; 94729 ==

== ENCOUNTER 2023-04-06 08:31 | Outpatient (REF) | payer MEDICARE, MEDICAID, SELFPAY ==
--- NOTE | 2023-04-06 | PFT_ITS ---
FLOWS: 1. FEV1 56% of predicted at 1.80 L. 2. FVC 53% of predicted at 2.32 L. 3. FEV1 to FVC ratio of 0.77. 4. No bronchodilator response. LUNG VOLUMES: 1. Total lung capacity 61% of predicted at 4.18 L. 2. Residual volume 78% of predicted at 1.87 L. 3. Slow vital capacity 53% of predicted at 2.32 L. 4. Expiratory reserve volume 24% of predicted at 0.30 L. 5. Diffusion capacity is moderately decreased, diffusion capacity corrects to normal after adjustment for alveolar ventilation. IMPRESSION: Moderate restrictive ventilatory defect with no bronchodilator response. Decreased expiratory reserve volume suggests extrathoracic restriction likely secondary to abdominal obesity. Decreased diffusion capacity together with restrictive ventilatory defect suggests underlying pulmonary parenchymal disease. Clinical correlation is advised. MD KELLEY Orellana/MODL / [phone]
== END 2023-04-06 08:32 | disposition home or self-care (01) ==
LOC: HO.RESP 08:31
PROVIDERS: PCP Physician Assistant; Visit Provider Physician Assistant
DX: R06.00 Dyspnea, unspecified (principal)
CPT/HCPCS: 94010; 94727; 94729

== ENCOUNTER 2023-05-18 14:15 | Outpatient (AMB) | payer MEDICARE, MEDICAID, SELFPAY ==
--- NOTE | 2023-05-18 14:16 | MHC.OFFVIS ---
Intake Vital Signs 05/18/23 14:18 Height 5 ft 8 in Weight 210 lb BMI 31.9 Intake Visit Reasons: OV - RT TKA 12/13/22 increased redness Intake Note: Akira is a 67 year old male who presents today for a follow up of his right knee. He is s/p Right TKA 12/13/22. Patient reports that he has had increased redness and swelling for about 2 weeks now. He was given abx in precaution of infection but there was no changes of redness. He has blisters on the leg and some of the blisters have burst. Allergies No Known Allergies [No Known Allergies*] Allergy (Unverified 05/18/23 14:20) HPI OV - RT TKA 12/13/22 increased redness HPI Details Akira is a 67 year old man ~5 months S/P right TKA, presenting with concerns of a red rash about his knee. He complains of redness and swelling about his right knee for ~2 weeks now. He reports having some blisters on his leg and some of them have ruptured. He says he has done 2 courses of PO Keflex, prescribed by his PCP, with no improvements. He says his knee is feeling worse recently, and felt better ~3 weeks ago before the redness began. He has a hx of ETOH and IVDU. [facility] Medical History Alcohol use disorder Anxiety Aortic stenosis Arthritis Asthma Depression Hepatitis C High blood pressure Neuropathy Osteoarthritis of right knee Substance abuse in remission Surgical History H/O colonoscopy History of total left knee replacement Hx of left inguinal hernia repair Hx of vein stripping Social History Household Members: Family Housing: House Are you a primary account executive healthcare to a significant other at home: No Do you presently have visiting nurse or other home services: Yes Patient Tobacco Use Status: Current everyday Tobacco user Tobacco use type: Cigarette Cigarette Packs Per Day: 1 Cigarettes Per Day: 20 Years Smoked: 40 service: No Current occupational status: retired Current occupation: rt hand Review of Systems Const All systems reviewed & are unremarkable except as noted in HPI and below Physical Exam Vital Signs: BMI result Body Mass Index 31.9 Const General: no acute distress, alert and awake Orientation/consciousness: patient oriented x3 HEENT Head: Yes normocephalic and Yes atraumatic Eyes EOM: EOMs intact bilaterally Resp Effort & Inspection: normal respiratory effort and able to speak in complete sentences Cardio Jugular venous distension: no JVD Skin General skin exam: turgor normal Rashes: no rashes Neuro General: patient oriented x3 Extrem Other: Right Knee: Well-healed incision bilateral erythema of lower legs s/w chronic veostatis vs cellulitis. knee is clean and dry and there is now swelling Psych Appearance: grossly normal Affect: normal affect Attitude: cooperative Results Reviewed Results Reviewed: I personally reviewed relevant radiographs. Right total knee arthroplasty in expected post operative position with no hardware complications or evidence of loosening Assessment & Plan Assessment & Plan (1) Status post total knee replacement, right: Code(s): Z96.651 - Presence of right artificial knee joint Plan: Doing well. NO evidence of infection ROM excellent (2) Edema of right lower extremity: Code(s): R60.0 - Localized edema (3) Edema of left lower extremity: Code(s): R60.0 - Localized edema (4) Cellulitis of lower extremity: Code(s): L03.119 - Cellulitis of unspecified part of limb Plan: This is a 67 year old man with bilateral LE edema, S/P right TKA, DOS: 12/13/22. He reports erythema, swelling, and blistering for ~2 weeks now, with no improvement from PO Keflex. He has pain with daily activity and has been resting & elevating his knee. He denies any compression stockings, which I recommend he begin to use, and he speak with his PCP concerning this. He should continue with PT and activity as tolerated. Plan Scribed for Joe Guerra MD by Clinton Sarabia, internist medical doctor md, on 05/18/23 at 2:30 PM, EST. Coding Level of Care Code Global (68320) Diagnoses Status post total knee replacement, right Z96.651 Edema of right lower extremity R60.0 Edema of left lower extremity R60.0 Cellulitis of lower extremity L03.119
[2023-05-18 14:18] VITALS: BMI 31.9
== END 2023-05-18 15:20 | disposition home or self-care (01) ==
PROVIDERS: PCP Physician Assistant; Visit Provider Orthopaedic Surgery
DX: R60.0 Localized edema (principal); Z96.651 Presence of right artificial knee joint; L03.119 Cellulitis of unspecified part of limb
CPT/HCPCS: 99213

== ENCOUNTER → 2023-05-18 14:15 | Outpatient (BNVA) | payer MEDICARE, MEDICAID, SELFPAY | PROVIDERS: PCP Physician Assistant; Visit Provider Orthopaedic Surgery | DX: R60.0 Localized edema (principal); L03.115 Cellulitis of right lower limb; Z96.651 Presence of right artificial knee joint | CPT/HCPCS: 99212 ==

== ENCOUNTER 2024-06-20 12:27 | Outpatient (RCR) | payer MEDICARE, MEDICAID, SELFPAY | END 2024-07-03 13:51 | disposition home or self-care (01) | LOC: HO.CR 12:27 | PROVIDERS: PCP Physician Assistant; Visit Provider Internal Medicine Cardiovascular Disease | DX: I25.10 Atherosclerotic heart disease of native coronary artery without angina pectoris (principal) | CPT/HCPCS: 93798 ==